=== PATIENT | female | born 1980 | race Caucasian/White ===

== ENCOUNTER 2016-12-19 07:38 | Inpatient (IN) | payer OTHER ==
[2016-12-19] MEDS ORDERED: Misoprostol TAB* 100 MCG VAGINAL PRN (09:12)
[2016-12-19] MEDS ORDERED: Misoprostol TAB* 100 MCG ONE (09:18)
--- NOTE | 2016-12-19 15:36 | PTEDU ---
Patient Name: KATHY LUJAN KATHY LUJAN selected video: BBOB: Bonding Through Infant Massage to view on 12/19/2016 at 3:35:2 5 PM from [id number]
--- NOTE | 2016-12-19 17:31 | PTEDU ---
Patient Name: KATHY LUJAN KATHY LUJAN selected video: BBOB: Bonding Through Infant Massage to view on 12/19/2016 at 5:29:5 9 PM from [id number]
[2016-12-19] MEDS ORDERED: Oxytocin in LR* 20 UNITS/1,000 ML BAG IVPB ONE (20:23)
[2016-12-19] MEDS ORDERED: Nalbuphine* 20 MG/ML 1 ML VIAL IV PRN (20:29)
[2016-12-19] MEDS ORDERED: Promethazine INJ(RESTRICTED)* 25 MG/ML 1 ML VIAL IV PRN (20:30)
[2016-12-19] MEDS ORDERED: Oxytocin in LR* 20 UNITS/1,000 ML BAG IVPB SCH (21:00)
[2016-12-19 21:12] LABS: Hematocrit 38 % (35-47); Hemoglobin 12.9 g/dl (12.0-16.0); Mean Corpuscular HGB Conc 34 g/dl (31-36); Mean Corpuscular Hemoglobin 34 pg (27-31); Mean Corpuscular Volume 99 fL (80-97); Mean Platelet Volume 11 um3 (7.4-10.4); Red Blood Count 3.83 10^6/ul (4.0-5.4); Red Cell Distribution Width 13 % (10.5-15)
[2016-12-19 21:16] LABS: Comments Flag Yes
[2016-12-19 21:29] LABS: Add Diff/Slide Review? Slide Review Added
[2016-12-20] MEDS ORDERED: Ondansetron INJ* 2 MG/ML VIAL IV PRN (05:26)
[2016-12-20] MEDS ORDERED: Ondansetron INJ* 2 MG/ML VIAL ONE (05:27)
[2016-12-20] MEDS ORDERED: D5LR 1000 ML BAG* 1,000 ML IV SCH (06:00)
[2016-12-20] MEDS ORDERED: OBEPIDURAL* 250 ML ONE (09:38)
[2016-12-20] MEDS ORDERED: Sodium Citrate/Citric Acid* 15 ML UDC PO PRN (10:05)
[2016-12-20] MEDS ORDERED: Phenylephrine IV* 40 MCG/ML 10 ML SYRINGE IV PUSH PRN (10:05)
[2016-12-20] MEDS ORDERED: Famotidine TAB* 20 MG PO PRN (10:05)
[2016-12-20] MEDS ORDERED: EPHEDrine (Pressors)* 50 MG/ML VIAL IV PUSH PRN (10:05)
[2016-12-20] MEDS ORDERED: fentaNYL* 50 MCG/ML 2 ML VIAL (100 MCG VIAL) ONE (19:18)
[2016-12-20] MEDS ORDERED: Witch Hazel PAD* JAR TOPICAL PRN (20:01)
[2016-12-20] MEDS ORDERED: Glycerin ADULT SUPP PR PRN (20:01)
[2016-12-20] MEDS ORDERED: Dibucaine 1% 28.35 GM TUBE PR PRN (20:01)
[2016-12-20] MEDS ORDERED: Misoprostol TAB* 200 MCG PR ONE (20:01)
[2016-12-20] MEDS ORDERED: Misoprostol TAB* 200 MCG ONE (20:30)
[2016-12-20] MEDS ORDERED: Witch Hazel PAD* JAR ONE (20:45)
[2016-12-20] MEDS ORDERED: Dibucaine 1% 28.35 GM TUBE ONE (20:45)
[2016-12-20] MEDS ORDERED: Simethicone CHEW TAB* 80 MG PO SCH (21:00)
[2016-12-20] MEDS: OBEPIDURAL* 250 ML EPIDURAL SCH (21:14)
[2016-12-20] MEDS: Ibuprofen TAB* 600 MG PO PRN (22:59)
[2016-12-21] MEDS: Docusate CAP* 100 MG PO SCH ×6 (02:52→22:30)
[2016-12-21 06:04] LABS: Hematocrit 25 % (35-47); Hemoglobin 8.3 g/dl (12.0-16.0); Mean Corpuscular HGB Conc 34 g/dl (31-36); Mean Corpuscular Hemoglobin 34 pg (27-31); Mean Corpuscular Volume 99 fL (80-97); Mean Platelet Volume 11 um3 (7.4-10.4); Red Blood Count 2.49 10^6/ul (4.0-5.4); Red Cell Distribution Width 13 % (10.5-15); White Blood Count 13.4 10^3/ul (3.5-10.8)
[2016-12-21 06:05] LABS: Comments Flag Yes
[2016-12-21] MEDS: Ibuprofen TAB* 600 MG PO PRN ×3 (08:23→21:02)
[2016-12-21] MEDS: Acetaminophen TAB* 325 MG PO PRN ×3 (08:23→21:02)
[2016-12-21] MEDS: Ferrous Gluconate TAB* 324 MG TAB PO SCH ×2 (08:23→21:01)
[2016-12-21] MEDS: OBEPIDURAL* 250 ML EPIDURAL SCH (11:22)
[2016-12-22] MEDS: Ibuprofen TAB* 600 MG PO PRN ×2 (04:54→12:39)
[2016-12-22] MEDS: Acetaminophen TAB* 325 MG PO PRN ×2 (04:56→12:39)
[2016-12-22 07:55] VITALS: BP 92/46
[2016-12-22] MEDS: Ferrous Gluconate TAB* 324 MG TAB PO SCH (09:32)
[2016-12-22] MEDS: Docusate CAP* 100 MG PO SCH ×2 (09:32→12:39)
[2016-12-22] MEDS ORDERED: Measles, Mumps,Rubella VACC* 0.5 ML/VIAL ONE (16:56)
== END 2016-12-22 17:08 | disposition home or self-care (01) | DRG 767 ==
LOC: MCHOBOUT 07:38 → MCHOB 09:16
PROVIDERS: ADMIT Obstetrics & Gynecology; ATTEND Obstetrics & Gynecology
PROC: 3E0P7GC Introduction of Other Therapeutic Substance into Female Reproductive, Via Natural or Artificial Opening (ICD-10-PCS; principal; 2016-12-19)
PROC: 10D17ZZ Extraction of Products of Conception, Retained, Via Natural or Artificial Opening (ICD-10-PCS; 2016-12-20)
PROC: 10E0XZZ Delivery of Products of Conception, External Approach (ICD-10-PCS; 2016-12-20)
PROC: 0DQR0ZZ Repair Anal Sphincter, Open Approach (ICD-10-PCS; 2016-12-20)
PROC: 0W8NXZZ Division of Female Perineum, External Approach (ICD-10-PCS; 2016-12-20)
PROC: 4A1HXCZ Monitoring of Products of Conception, Cardiac Rate, External Approach (ICD-10-PCS; 2016-12-20)
DX: O48.0 Post-term pregnancy (principal); O72.0 Third-stage hemorrhage; O70.20 Third degree perineal laceration during delivery, unspecified; Z3A.40 40 weeks gestation of pregnancy; Z37.0 Single live birth; O99.824 Streptococcus B carrier state complicating childbirth; N20.0 Calculus of kidney; O75.89 Other specified complications of labor and delivery; O66.0 Obstructed labor due to shoulder dystocia
CPT/HCPCS: 36415; 85025; 86850; 86900; 86901; 90707; A9270-GY; J2405; J3010; S0191